=== PATIENT | female | born 1995 | race Caucasian/White ===

== ENCOUNTER → 2020-09-16 17:39 | Outpatient (CLI) | payer BC, OTHER, SELFPAY ==
[2020-09-16 20:59] LABS: Coronavirus 19 IgG Antibody Negative (Negative); Coronavirus 19 IgM Antibody Negative (Negative)
== END ==
PROVIDERS: PCP Internal Medicine Gastroenterology; Visit Provider Internal Medicine Gastroenterology
DX: Z03.818 Encounter for observation for suspected exposure to other biological agents ruled out (principal); Z12.11 Encounter for screening for malignant neoplasm of colon; R19.5 Other fecal abnormalities; Z01.818 Encounter for other preprocedural examination
CPT/HCPCS: 36415; 86328

== ENCOUNTER 2020-09-18 10:43 | Day surgery (SDC) | payer BC, OTHER, SELFPAY ==
[2020-09-15 13:01] VITALS: BMI 22.4
[2020-09-18 11:50] VITALS: BP 128/89; PULSE 85; RESP 18; TEMP 36.2; O2SAT 100
[2020-09-18 12:16] LABS: HCG Qualitative, Serum Negative (Negative)
--- NOTE | 2020-09-18 13:46 | HMH.PROC ---
[facility] Procedure Note Procedure Note:: Colonoscopy Procedure Report: Colonoscopy with monopolar ablation/coagulation of internal hemorrhoids Endoscopist: Dennis Valdes II, MD Referring physician: None Date of Procedure: September 18, 2020 Equipment: Olympus 180 variable stiffness pediatric colonoscope Sedation: MAC sedation Indication: Ms. Curry is a 25-year-old female with rectal bleeding. The patient often has the feeling of incomplete bowel evacuation and constipation. She reports some frequent rectal pain with defecation. She does get a tearing sensation. She reports no hemorrhoid prolapse. She does take Metamucil twice daily. She reports no weight loss or family history of colon cancer. She did have a colonoscopy in September 2014 ([facility]) and had small internal hemorrhoids with hemorrhoidal tags. Her colonoscopy was otherwise normal. Procedure: Prior to the procedure, a history and physical exam was performed, and patient's medications and allergies were reviewed. The risks, benefits and alternatives of the sedation and procedure were discussed with the patient. All questions were answered and informed consent was obtained. The patient was brought to the procedure room. Patient identification and proposed procedure were verified by the physician and the nurse. The patient was placed in a left lateral decubitus position and the scope was passed under direct vision. Throughout the procedure, the patient's blood pressure, pulse, and oxygen saturations were monitored continuously. The colonoscopy was accomplished without difficulty. The patient tolerated the procedure well. Findings: On digital rectal examination there was normal rectal tone. There were no external hemorrhoids. There was a healed posterior midline anal fissure. The colonoscope was introduced through the anal canal to the rectum and advanced to the cecum. The ileocecal valve and appendiceal orifice were identified. The scope was advanced a short distance into the ileum which appeared grossly normal. The scope was then withdrawn into the colon. The cecum, ascending, transverse, descending, sigmoid and rectum were grossly normal. There were no mucosal abnormalities identified. Upon retroflexion within the rectum there were grade 1-2 internal hemorrhoids.these columns of hemorrhoids were ablated/coagulated using monopolar coagulation. The preparation was excellent throughout with [place] Preparation Score of 9. The cecal time was 12 minutes. Impression: 1. Normal colonoscopy with intubation of the terminal ileum 2. Grade 1-2 internal hemorrhoids status post monopolar ablation/coagulation 3. Healing posterior midline anal fissure Plan: I will discuss the findings with the patient and family. I would consider improved bulk fiber regimen (combined MiraLAX plus Konsyl every a.m.).
[2020-09-18 13:47] VITALS: BP 95/59; PULSE 78; RESP 18; TEMP 36.2; O2SAT 98
[2020-09-18 13:57] VITALS: BP 118/68; PULSE 78; RESP 18; O2SAT 98
[2020-09-18 14:07] VITALS: BP 112/80; PULSE 69; RESP 18; TEMP 36.1; O2SAT 98
[2020-09-18 14:20] VITALS: BP 116/71; PULSE 70; RESP 20; TEMP 36.1; O2SAT 99
--- NOTE | 2020-09-18 14:40 | P.PN_ITS ---
[facility] Anesthesia Checklist - Patient Identification Patient Identification: Arm Band - Structural Data Admitted From: Home Planned Operative Procedure/s: colonoscopy Consent for Planned Operative Procedure(s) Verified: Yes Verified Documents: Surgical Consent, History and Physical - NPO Status Verified Time NPO: 00:00 - Additional verifications Anesthesia Reactions: No - Airway Assessment C-Spine Mobility Assessed: Yes (mp2) TMJ Mobility Assessed: Yes Dentition: Good Dentition - Neurological Assessment Level of Consciousness: Awake, Alert - Anesthesia Plan Anesthesia Risk discussed: Yes Anesthesia Plan: Verified ASA Class: I Anesthesia Type: MAC [facility] History I have reviewed the patient's past medical history: Yes *Have you ever received a pneumonia vaccine?: No *Have you received a flu vaccine this season?: No Anesthesia experience/problems:: nac Other Surgeries: Yes: Colonoscopy - *Social History Last grade of school completed: Advanced degree Substance Use Type: denies use *Occupational Status:: employed *Travel in the last 8 weeks: None Family Hx:: No significant family history
== END 2020-09-18 14:22 | disposition home or self-care (01) ==
PROVIDERS: Visit Provider Internal Medicine Gastroenterology
PROC: 0DJD8ZZ Inspection of Lower Intestinal Tract, Via Natural or Artificial Opening Endoscopic (ICD-10-PCS; CPT 45378; principal; 2020-09-18 12:00)
DX: K64.0 First degree hemorrhoids (principal); K62.5 Hemorrhage of anus and rectum; K56.41 Fecal impaction; K62.89 Other specified diseases of anus and rectum
CPT/HCPCS: 46930; 45378; 36415; 84703